=== PATIENT | female | born 1970 | race Caucasian/White ===

== ENCOUNTER 2020-08-07 17:17 | Observation (INO) | payer OTHER, SELFPAY ==
[2020-08-07 17:05] VITALS: BMI 33.0; BMI 33.1
[2020-08-07 17:16] VITALS: BP 122/70; PULSE 78; RESP 18; TEMP 36.8; O2SAT 98
[2020-08-07] MEDS: 0.9% Saline Lock 10 ML Syringe IV ×2 (17:38→17:42)
[2020-08-07] MEDS: 0.9% Normal Saline 1,000 ML 50 ML IV (17:38)
[2020-08-07] MEDS: Morphine 2 MG/ML Syringe IV (17:42)
[2020-08-07] MEDS: Ondansetron 4 MG/2 ML Vial IV (17:42)
--- NOTE | 2020-08-07 17:50 | RAD_ITS ---
INDICATION: kidney stone EXAMINATION/TECHNIQUE: X-RAY - XR Abdomen 1 View COMPARISON: None FINDINGS: BOWEL GAS PATTERN: Non-obstructive. No bowel or stomach distention. FREE AIR: Not assessed on a single supine view. ORGANOMEGALY: Not seen. CALCIFICATIONS: Innumerable clustered tiny stones project over the right hemiabdomen. It is difficult to determine if these are within the kidney or bowel. 6 mm stone projects over the left kidney. LOWER CHEST: No acute pathology. BONES AND SOFT TISSUES: No acute pathology. RAD/Abdomen Single View IMPRESSION: Innumerable clustered tiny stones project over the right hemiabdomen. It is difficult to determine if these are within the kidney or bowel. 6 mm stone projects over the left kidney. Electronically Signed: Robert Muniz MD at 18:19 EDT Tel , Service support ,
--- NOTE | 2020-08-07 18:21 | PCM.HP.STD ---
Problem List (1) Left ureteral calculus Status: Acute History of Present Illness Date of Admission: 08/07/20 Chief Complaint: Left obstructing ureteral calculi The patient is a 50 year old female who presented to the hospital obstructing stone in the mid left ureter she was admitted for pain control plan to proceed with cystoscopy left stent placement and left shockwave lithotripsy. Past Medical History Allergies amoxicillin Adverse Reaction (Verified 08/07/20 17:33) Hives BEE STING Adverse Reaction (Intermediate, Uncoded 08/07/20 17:33) Itching SWOLLEN & ITCHING PENICILLIN Adverse Reaction (Intermediate, Uncoded 08/07/20 17:35) Hives Surgical History: no surgical history Smoking Status: Never smoker Review of Systems Constitutional: Denies: Chills, Fever, Weight Change HEENT: Denies: Head Aches, Sinus Congestion, Sinus Drainage Cardiovascular: Denies: Chest Pain, Palpitations Respiratory: Denies: Cough, Shortness of breath at rest, Sputum production Gastrointestinal: Denies: Abdominal Pain, Nausea, Vomiting Genitourinary: Denies: Dysuria Musculoskeletal: Denies: Joint Pain, Joint Tenderness Skin: Denies: Rash, Wounds Neurological: Denies: Numbness, Tingling, Focal weakness Psychiatric: Denies: Anxiety, Depression, Homicidal Ideations, Suicidal Ideations Hematologic/ Lymphatic: Denies: Easy Bruising, Easy Bleeding VTE Information - Inpt Only VTE Present on Admission: No - Physical Exam Vitals/I&O's: Vital Signs Temp Pulse Resp BP Pulse Ox 98.2 F 78 18 122/70 H 98 08/07/20 17:16 08/07/20 17:16 08/07/20 17:16 08/07/20 17:16 08/07/20 17:16 Oxygen Delivery Method Room Air Weight: 84.7 kg Body Mass Index (BMI) 33.0 General: Alert, Oriented x3, Cooperative HEENT: Atraumatic, PERRLA, EOMI, Normocephalic Neck: Supple, No JVD, Negative Carotid Bruits Lungs: Clear to auscultation, Normal air movement Cardiovascular: Regular rate, No murmurs Abdomen: Bowel Sounds Present, Soft, Non Tender Extremities: No edema, Capillary Refill Less than 3 Seconds Skin: No rashes, No breakdown Musculoskeletal: No Tenderness to Palpation of Joints or Extremities Neurological: Cranial nerves II-XII grossly intact Psych/Mental Status: Normal Affect, Appropriate Current Medications Sodium Chloride () 1,000 mls @ 50 mls/hr IV .Q20H GLORIA Last Admin: 08/07/20 17:38 Dose: 50 mls/hr Documented by: Morphine Sulfate (Morphine 2 Mg/Ml Syringe) 2 mg IV Q2H PRN PRN PRN Reason: Pain Score 1-10 Last Admin: 08/07/20 17:42 Dose: 2 mg Documented by: Ondansetron HCl (Ondansetron 4 Mg/2 Ml Vial) 4 mg IV Q6H PRN PRN PRN Reason: NAUSEA/VOMITING Last Admin: 08/07/20 17:42 Dose: 4 mg Documented by: Sodium Chloride (0.9% Saline Lock 10 Ml Syringe) 10 - 40 ml IV UD PRN PRN Reason: SALINE FLUSH Last Admin: 08/07/20 17:42 Dose: 10 ml Documented by: Assessment/Plan All Active Problems Left ureteral calculus (Acute) 50-year-old female presented with obstructing stone in the mid left ureter on review of her outside CAT scan she also has a significant amount of stones in the right kidney with a significant collection of stones. With a large right staghorn calculus the plan will be to place a stent on the right side a stent on the left side and do shockwave lithotripsy of the left ureteral calculi we will have to address the stones in the right kidney with a percutaneous approach at a later setting.
[2020-08-07 20:15] VITALS: PULSE 80
[2020-08-07] MEDS: Acetaminophen 325 MG Tablet PO (20:20)
[2020-08-07] MEDS: Cefazolin 1 GM/50 ML BAG IV (21:31)
[2020-08-07 21:37] VITALS: BP 107/57; PULSE 80; RESP 20; TEMP 36.9; O2SAT 98
[2020-08-08] VITALS (9 sets, daily range): BP systolic 95–143; BP diastolic 63–85; PULSE 79–112; RESP 16–18; TEMP 36.3–37; O2SAT 93–100
[2020-08-08] MEDS: Acetaminophen 325 MG Tablet PO ×2 (01:55→07:41)
[2020-08-08] MEDS: Ondansetron 4 MG/2 ML Vial IV ×2 (02:05→08:03)
[2020-08-08] MEDS: 0.9% Saline Lock 10 ML Syringe IV ×2 (02:05→08:03)
[2020-08-08] MEDS: Cefazolin 1 GM/50 ML BAG IV ×2 (05:07→12:17)
[2020-08-08] MEDS: Morphine 2 MG/ML Syringe IV (05:07)
--- NOTE | 2020-08-08 06:33 | NURSING ---
Surgery called asking about this pt. I advised that this pt has not had a rapid COVID as far as I can tell. They will advise Dr. Love of the same.
[2020-08-08 06:40] LABS: Hemoglobin 10.6 g/dL (12.0-15.0); Mean Corp Hgb Conc 32.1 g/dL (32-36); Mean Corpuscular Volume 93.5 fL (81-99); Mean Platelet Vol. 10.7 fl (6.2-12.0); Platelet Count 172 K/mm3 (150-450); RBC Distribution Width CV 13.2 % (11.6-14.6); RBC Distribution Width SD 44.6 fl (35.1-43.9); Red Blood Count 3.53 M/mm3 (4.2-5.4); White Blood Count 6.7 K/mm3 (4.4-11.0)
[2020-08-08 07:00] LABS: Anion Gap 6 (5-15); BUN 12 mg/dL (7-18); BUN/Creat Ratio 14.3 RATIO (10-20); Calcium,Total 8.4 mg/dL (8.5-10.1); Chloride 106 mmol/L (98-107); Creatinine, Serum 0.84 mg/dL (0.55-1.02); EST Glomerular Filtration Rate 76 mL/min (>60); Est Glom Filt Rate - Afr Amer 92 mL/min (>60); Estimated Creatinine Clearance 66.28 ml/min; Glucose 101 mg/dL (74-106); Potassium 3.4 mmol/L (3.5-5.1); Sodium Level 136 mmol/L (136-145)
--- NOTE | 2020-08-08 10:58 | NURSING ---
PT TO OR VIA BED
--- NOTE | 2020-08-08 11:38 | DCINST_ITS ---
Discharge Diet: Light diet - advance as tolerated Discharge Activity: Return to Normal Activity Allergies/Adverse Reactions: Allergies amoxicillin Adverse Reaction (Verified 08/07/20 17:33) Hives BEE STING Adverse Reaction (Intermediate, Uncoded 08/07/20 17:33) Itching SWOLLEN & ITCHING PENICILLIN Adverse Reaction (Intermediate, Uncoded 08/07/20 17:35) Hives Medications to take at Discharge Fluoxetine [Prozac] 20 mg PO DAILY 08/07/20 Primary Care Physician: Karen Major CONTROL SYSTEMS ENGINEER, CONTROL SYSTEMS ENGINEER-C [Primary Care Provider] - Test Results: Test results from this visit will be discussed in further detail at your follow- up appointment, if applicable. Please Follow Up With: Wade Love MD - [phone] When: in 2 weeks, please call to make an appointment.
[2020-08-08] MEDS: Lactated Ringers 1,000 ML 100 ML IV (12:31)
--- NOTE | 2020-08-08 12:54 | OP.PCM_ITS ---
Problem List (1) Left ureteral calculus Status: Acute Report of Operation Date of Procedure: 08/08/20 Pre-Operative Diagnosis: Left ureteral calculus and right multiple large renal calculus Post-Operative Diagnosis: Same Surgery/Procedure Performed:: Cystoscopy right retrograde pyelogram right stent placement. Cystoscopy, left retrograde pyelogram, left ureteroscopy laser lithotripsy of stone balloon dilation of left ureter and left stent placement Description of Surgical Findings:: Patient was taken back to the operating room after induction of general anesthesia, the patient was placed in dorsolithotomy position. The urethra and genitals were prepped and draped in usual sterile fashion. Using a 21 Tristanian rigid cystourethroscope the entire length of the urethra was normal then went into the bladder. Identified the trigone the left and right ureteral orifice. I then cannulated the right orifice and advanced a wire up into the kidney. I then backloaded a 5 Tristanian open ended catheter over the wire and injected contrast to delineate the anatomy. Demonstrated a large collection of stone in the right renal pelvis. After the retrograde was performed I then used fluorosc opic images and guidance to advanced a wire up into the kidney and over the 0.038 glidewire I advanced a 6 Tristanian by 26 cm double pigtail stent. I then pulled the 0.038 Glidewire off and the stent coiled in the kidney bladder good position. The bladder was then drained. We confirmed the position of the stent by fluoroscopy. Then I went into the bladder with a 21 Tristanian rigid cystourethroscope through the urethra. Upon entering the bladder I inspected the trigone the left and right ureteral orifice and the bladder itself. I then cannulated the Left ureteral orifice and advanced a 0.038 Glidewire up into the kidney. Then over the Glidewire I advanced a 5 Fr Ureteral catheter and performed a retrograde pyelogram with about 10cc of contrast, to delineate the anatomy and identify the stone location. Then a ureteral balloon dilator was advanced over the wire and the distal ureter was balloon dilated with a 12 Fr x 5cm balloon dilator. After 3 minutes of dilating the ureter the balloon was backloaded off the 0.038 glidewire then the safety wire was left in place. I then placed a second 0.038 Guidewire as a working wire and over the working 0.038 guidewire I went in with a Flexible 7.9fr ureteroscope. I was able to go inside with the 7.9Fr flexible utereroscope and I pulled out the working guidewire and then through the 7.9 fr flexible ureteroscope I ascended up the ureter with direct visualization until the stone was located, then I engaged the stone with laser lithotripsy using a 270miron laser fiber with energy setting of 6 Hertz and 0.6 J until the stone was lasered into tiny little pieces that should pass on their own. After successful noemi lithotripsy of the stone and stone fragements, a retrograde pyelogram was performed with 10cc of contrast and no extravasation of contrast or perforation was identified in the ureter. I then backed out of the ureter left the wire in place and then over the 0.038 guidewire I placed a double coiled pigtail ureteral stent. The ureteral stent was advanced over the 0.038 guidewire under direct fluoroscopic guidance and direct cystoscopic visual guidance, once the stent was in good position I pulled the wire and the stent coiled in the kidney and bladder in good position. I then drained the patient's bladder and the cystoscope was removed and the patient was taken back to the recovery room in good position. The patient was given discharge instructions to call the office for instructions on when to come to the office for follow up, she will need a Percutaneous approach to remove the stone in the right kidney. Type of Anesthesia:: General - Admit VTE Documentation VTE Present on Admission: No VTE Mechan Device Prophylaxis: SCD's
[2020-08-08] MEDS: 0.9% Normal Saline 1,000 ML 50 ML IV (14:22)
== END 2020-08-08 17:50 | disposition home or self-care (01) ==
PROVIDERS: Admitting Provider Urology; PCP Nurse Practitioner Family; Visit Provider Urology
PROC: 0TJ98ZZ Inspection of Ureter, Via Natural or Artificial Opening Endoscopic (ICD-10-PCS; CPT 52352; principal; 2020-08-08 15:35)
DX: N20.2 Calculus of kidney with calculus of ureter (principal); F41.9 Anxiety disorder, unspecified; F32.9 Major depressive disorder, single episode, unspecified; Z79.899 Other long term (current) drug therapy; I49.9 Cardiac arrhythmia, unspecified
CPT/HCPCS: 00918; 52332; 52356; 36415; 74018; 76000; 80048; 85027; 87426; 96365; 96366; 96375; 96376; 99218; 99251; J7030; J7120; A4216; C1769; C2617; G0378; G0379; G0463; J2405

== ENCOUNTER 2020-08-22 07:26 | Observation (INO) | payer OTHER, SELFPAY ==
[2020-08-07 17:05] VITALS: BMI 33.0
[2020-08-22] VITALS (12 sets, daily range): BP systolic 95–127; BP diastolic 52–86; PULSE 60–92; RESP 16–18; TEMP 36.3–36.9; O2SAT 96–100; BMI 32.2
--- NOTE | 2020-08-22 05:57 | RAD_ITS ---
STUDY: X-RAY - ABDOMEN/PELVIS REASON FOR EXAM: Female, 50 years old. Preop kidney stone TECHNIQUE: Single AP view of the abdomen / pelvis. COMPARISON: August 08, 2019 FINDINGS: There is a focus of radiopaque densities in the right upper quadrant. There are bilateral double-J stents. There is postoperative change status post cholecystectomy. Normal soft tissue structures. There are diffuse degenerative changes of the visualized lumbar spine. This postoperative change. RAD/Abdomen Single View IMPRESSION: There is a postoperative change underlying the right second proximal double-J stent. Bilateral double-J stents. There are cluster of stones in the projected over within the right kidney. Electronically Signed: Digna Herman MD at 7:03 EDT Tel , Service support ,
[2020-08-22] MEDS: Lactated Ringers 1,000 ML 100 ML IV ×3 (06:56→23:30)
--- NOTE | 2020-08-22 07:24 | PCM.HP.STD ---
Problem List (1) Left ureteral calculus Status: Acute (2) Right kidney stone Status: Acute History of Present Illness Date of Admission: 08/22/20 Chief Complaint: Status post right stent placement, for staghorn calculus, status post left stent placement after ureteroscopy and laser of stone. The patient is a 50 year old female who presented to the hospital with an obstructing stone in the mid ureter she underwent ureteroscopy and laser lithotripsy of stone and stent placement also she was found to have very large collection of stones in the right renal pelvis consistent with a staghorn calculus and today working to proceed with a percutaneous removal of the stones and removal of the left stent. Past Medical History Allergies Penicillins Allergy (Intermediate, Verified 08/21/20 07:13) Hives amoxicillin Allergy (Verified 08/21/20 07:09) Hives doxycycline Allergy (Verified 08/22/20 06:35) Itching phenazopyridine [From Pyridium] Allergy (Verified 08/22/20 06:34) Other BEE STING Allergy (Intermediate, Uncoded 08/21/20 07:09) Itching SWOLLEN & ITCHING PENICILLIN Allergy (Intermediate, Uncoded 08/21/20 07:09) Hives Home Medications: Ambulatory Orders Medication Instructions Recorded Fluoxetine [Prozac] 20 mg PO DAILY 08/07/20 Ciprofloxacin [Cipro] 500 mg PO BID #10 tab 08/08/20 Fluconazole [Diflucan] 150 mg PO DAILY 08/16/20 Surgical History: no surgical history Psychiatric History: No 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 Lives: Spouse/ Significant Other Smoking Status: Never smoker Tobacco Use: Non-smoker Alcohol: None Drugs: None Review of Systems Constitutional: Denies: Chills, Fever, Weight Change HEENT: Denies: Head Aches, Sinus Congestion, Sinus Drainage Cardiovascular: Denies: Chest Pain, Palpitations Respiratory: Denies: Cough, Shortness of breath at rest, Sputum production Gastrointestinal: Denies: Abdominal Pain, Nausea, Vomiting Genitourinary: Denies: Dysuria Musculoskeletal: Denies: Joint Pain, Joint Tenderness Skin: Denies: Rash, Wounds Neurological: Denies: Numbness, Tingling, Focal weakness Psychiatric: Denies: Anxiety, Depression, Homicidal Ideations, Suicidal Ideations Hematologic/ Lymphatic: Denies: Easy Bruising, Easy Bleeding VTE Information - Inpt Only VTE Present on Admission: No - Physical Exam Vitals/I&O's: Vital Signs Temp Pulse Resp BP Pulse Ox 97.5 F L 92 16 127/75 H 98 08/22/20 06:39 08/22/20 06:39 08/22/20 06:39 08/22/20 06:39 08/22/20 06:39 Oxygen Delivery Method Room Air Weight: 82.6 kg Body Mass Index (BMI) 32.2 General: Alert, Oriented x3, Cooperative HEENT: Atraumatic, PERRLA, EOMI, Normocephalic Neck: Supple, No JVD, Negative Carotid Bruits Lungs: Clear to auscultation, Normal air movement Cardiovascular: Regular rate, No murmurs Abdomen: Bowel Sounds Present, Soft, Non Tender Extremities: No edema, Capillary Refill Less than 3 Seconds Skin: No rashes, No breakdown Musculoskeletal: No Tenderness to Palpation of Joints or Extremities Neurological: Cranial nerves II-XII grossly intact Psych/Mental Status: Normal Affect, Appropriate Microbiology Past 72 Hours 08/21/20 09:40 Interface Orders SARS-CoV-2 Antigen (Rapid) - Final Current Medications Cefazolin Sodium 2 gm/ Sodium (Chloride) 110 mls @ 150 mls/hr IV PREOP ONE Stop: 08/22/20 08:13 Lactated Ringer's () 1,000 mls @ 100 mls/hr IV .Q10H GLORIA Last Admin: 08/22/20 06:56 Dose: 100 mls/hr Documented by: Assessment/Plan All Active Problems Left ureteral calculus (Acute) Right kidney stone (Acute) Plan to proceed with cystoscopy and left stent removal, and then plan to proceed with right percutaneous removal of staghorn calculus and multiple large stones in the right renal pelvis.
[2020-08-22] MEDS: Cefazolin 2 GM in 0.9% Normal Saline 100 ML IV (07:28)
--- NOTE | 2020-08-22 07:30 | CALC_PTH ---
PATIENT: WALTER BERNARD LOC: [facility] U#:[id number] AGE/SX: 50/F ROOM: AR317 RE08/22/[address]: Dr. Wade Love MD : 1970 BED: 1 DIS: 08/24/2020 SPEC #: [id number] RECD: 08/22/20 10:08 STATUS: MAIK PARISHAmauri #: [id number] ELIAN: 08/22/20 07:[address]: Wade Love DEPT: SURGICAL PATHOLOGY RECD BY: Jewell Marley ENTERED: 08/22/20 11:07 SP TYPE: Calculi OTHR DR: Karen Major, BIT SHARPENER OPERATOR-C Tissues: CALCULI Procedures: Surgery Specimen Level I HEADER OPERATION: Right percutaneous nephrostomy, cystoscopy, left stent PRE-OP DIAGNOSIS: Left ureteral calculus; right kidney stone TISSUE SUBMITTED: Right renal calculi for analysis GROSS DIAGNOSIS Right renal calculi, removal: Unremarkable calculi (gross diagnosis only). AM:rachele 08/23/20 COMMENT The calculus is submitted in its entirety for chemical stone analysis. The results from this study will be reported separately. GROSS DESCRIPTION Received without fixative labeled with the patient's name and designated renal calculi for analysis. The specimen consists of multiple irregular fragments of calderon calculi measuring in aggregate 3.5 x 1.2 x 1.2 cm. The calculi are submitted in their entirety for chemical stone analysis. / AM:rachele 08/22/20 CPT: 07347
[2020-08-22] MEDS: Bupivacaine Mpf 0.5% 30 ML VIAL (09:04)
--- NOTE | 2020-08-22 09:09 | OP.PCM_ITS ---
Problem List (1) Left ureteral calculus Status: Acute (2) Right kidney stone Status: Acute Report of Operation Date of Procedure: 08/22/20 Pre-Operative Diagnosis: Right large multiple stones in the renal pelvis and the right kidney Post-Operative Diagnosis: The same Surgery/Procedure Performed:: Cystoscopy and left stent removal,. Cystoscopy and establishment of a left access sheath in the ureter. Percutaneous establishment of a right nephrostomy track. Percutaneous removal of multiple stones total size greater than 5 cm over 50 stones removed Description of Surgical Findings:: 50-year-old female presented to the hospital with obstructing stone in the left ureter she underwent left ureteroscopy laser lithotripsy and stent placement the left side at the same time she had very large stones in the right kidney multiple innumerable amount of stones in the right kidney because of the number of sizes on the recommended a percutaneous removal of the stones. Patient was taken back to the operating room after smooth induction of general anesthesia she was placed in dorsolithotomy position. Went into the bladder with a 21 Salvadorean rigid cystourethroscope, the urethra and vaginal area been prepped and draped in usual sterile fashion, I grabbed the existing stent from the left side and this was removed I then went to the right side grabbed that stent pulled out the meatus advance a wire through the stent and then over the wire I advanced an access sheath all the way up to the kidney under direct visualization. The patient was then repositioned on the table facedown arms out and secured to the table all her pressure points were padded. We prepped and draped the right flank for an approach to the right kidney for percutaneous approach and removal of stones percutaneously. I used fluoroscopy to identify the access point I wanted to make into the kidney in the lower pole to optimize removal of all the stones. I then under fluoroscopic guidance advanced a wire into the kidney until I got into the lower pole puncture. Then through this wire advanced a Glidewire that coiled in the kidney we went up with the flexible ureteroscope to confirm that the wire was in the kidney. I then dilated the tract with 6.9 Salvadorean dilator and then 8 Salvadorean dilator and then 10 Salvadorean dilator I then went in with a dual-lumen access sheath and placed a second wire as a safety wire and then the first wire went down the ureter as a safety wire. Left the ureteroscope in the channel to prevent any migration of stones down the ureter and then once the Super Stiff wire was in place I then balloon dilated the tract and created a nephrostomy track to the lower pole the kidney. I then went in with the nephroscope and immediately encountered a innumerable amount of small very hard stones that were resistant to ultrasonic treatment I used a basket and a grasper and essentially took the next hour to grasp and move the stones out manually and extracted over 50 small stones from her right kidney. Once we had all the stones is that we could in the renal pelvis then I used a flexible ureteroscope and flexible cystoscope to go up the kidney and I flushed stones down from the upper pole the kidney that would not reachable by direct ureteroscopic access getting the stones down the pelvis and I grabbed the remaining stones out of the renal pelvis and then she had several small stones in the lower pole diverticulum very difficult access at the use a flexible cystoscope to get into the ear and then going in there I used a engage basket and was able to basket out the last remaining fragments from the lower pole of the kidney. At the point under fluoroscopy I can see any more stones and under direct visualization could not see any more stones in the kidney render the patient completely clear of all stones the access sheath was removed the ureteroscope was removed I then placed a nephrostomy tube which is an 18 Salvadorean catheter into the renal pelvis with 3 cc in the balloon the access sheath was removed nephrostogram was performed and confirmation of the tube in the kidney. Pressure was held and then I secured the nephrostomy tube to the patient's back with stitches and the dressings were placed and patient was then extubated transferred back to the table taken back to the PACU in good condition with successful removal of all the stone fragments. There was minimal bleeding during the case by about 100 cc. Type of Anesthesia:: General Drains: RIGHT NEPHROSTOMY TUBE - Admit VTE Documentation VTE Present on Admission: No
[2020-08-22] MEDS: Lactated Ringers 1,000 ML 1000 ML IV (10:20)
[2020-08-22] MEDS: Ketorolac 15 MG/ML Vial IV (10:21)
[2020-08-22] MEDS: HYDROcodone Bitartrate/Apap 5/325 Tablet PO (13:38)
[2020-08-22] MEDS: FLUoxetine 20 MG Capsule PO (13:38)
[2020-08-22] MEDS: Cefazolin 1 GM/50 ML BAG IV ×2 (15:18→23:30)
[2020-08-22] MEDS: Ondansetron 4 MG/2 ML Vial IV (18:30)
[2020-08-23] MEDS: HYDROcodone Bitartrate/Apap 5/325 Tablet PO (01:03)
[2020-08-23 03:46] VITALS: BP 99/52; PULSE 73; RESP 16; TEMP 37.1; O2SAT 95
[2020-08-23] MEDS: Acetaminophen 325 MG Tablet PO (06:02)
[2020-08-23 07:07] LABS: Hematocrit 29.7 % (37-47); Hemoglobin 9.3 g/dL (12.0-15.0); Mean Corp Hgb Conc 31.3 g/dL (32-36); Mean Corpuscular Hgb 29.5 pg (27.0-32.0); Mean Corpuscular Volume 94.3 fL (81-99); Mean Platelet Vol. 9.9 fl (6.2-12.0); Platelet Count 222 K/mm3 (150-450); RBC Distribution Width CV 13.1 % (11.6-14.6); RBC Distribution Width SD 44.9 fl (35.1-43.9); Red Blood Count 3.15 M/mm3 (4.2-5.4); White Blood Count 12.2 K/mm3 (4.4-11.0)
--- NOTE | 2020-08-23 07:33 | PN_ITS ---
Patient Problems: Active and Suspected Problems Left ureteral calculus (Acute) Right kidney stone (Acute) Subjective: S/P RIGHT PERC DOING WELL URINE CLEAR - Physical Exam Vitals/I&O's: Vital Signs Temp Pulse Resp BP Pulse Ox 98.7 F 73 16 99/52 L 95 08/23/20 03:46 08/23/20 03:46 08/23/20 03:46 08/23/20 03:46 08/23/20 03:46 Oxygen Flow Rate (L/min) 12 Oxygen Delivery Method Room Air Weight: 82.6 kg Body Mass Index (BMI) 32.2 Intake and Output for Last 24 Hours 08/21/20 08/22/20 08/23/20 23:59 23:59 23:59 Intake Total 3615.00 / 3615.00 681.67 / 681.67 Output Total 430 / 680 450 / 450 Balance 3185.00 / 2935.00 231.67 / 231.67 General: Alert, Oriented x3, Cooperative HEENT: Atraumatic, PERRLA, EOMI, Normocephalic Neck: Supple, No JVD, Negative Carotid Bruits Lungs: Clear to auscultation, Normal air movement Cardiovascular: Regular rate, No murmurs Abdomen: Bowel Sounds Present, Soft, Non Tender Extremities: No edema, Capillary Refill Less than 3 Seconds Skin: No rashes, No breakdown Musculoskeletal: No Tenderness to Palpation of Joints or Extremities Neurological: Cranial nerves II-XII grossly intact Psych/Mental Status: Normal Affect, Appropriate Microbiology Past 72 Hours 08/21/20 09:40 Interface Orders SARS-CoV-2 Antigen (Rapid) - Final Laboratory Results 08/22/20 : Stone Source Pending, Stone Size Pending, Stone Weight Pending, Stone Color Pending 08/23/20 06:40: WBC 12.2 H, RBC 3.15 L, Hgb 9.3 L, Hct 29.7 L, MCV 94.3, MCH 29.5, MCHC 31.3 L, RDW Std Deviation 44.9 H, RDW Coeff of Mavis 13.1, Plt Count 222, MPV 9.9 08/23/20 06:40: Sodium Pending, Potassium Pending, Chloride Pending, Carbon Dioxide Pending, Anion Gap Pending, BUN Pending, Creatinine Pending, Est GFR (MDRD) Af Amer Pending, Est GFR (MDRD) Non-Af Pending, BUN/Creatinine Ratio Pending, Glucose Pending, Calcium Pending Current Medications Acetaminophen (Acetaminophen 325 Mg Tablet) 325 - 650 mg PO Q4H PRN PRN PRN Reason: pain score 1-10/fever/headache Last Admin: 08/23/20 06:02 Dose: 650 mg Documented by: Hydrocodone Bitart/Acetaminophen (Hydrocodone Bitartrate/Apap 5/325 Tablet) 1 - 2 tablet PO Q6H PRN PRN PRN Reason: Pain Score 1-5 Last Admin: 08/23/20 01:03 Dose: 1 tablet Documented by: Belladonna Alkaloids/Opium (Opium/Belladonna Alkaloids 60 Mg/15 Mg Suppository) 60 mg RC Q6H PRN PRN PRN Reason: Spasm Last Admin: 08/22/20 10:22 Dose: 60 mg Documented by: Fluoxetine HCl (Fluoxetine 20 Mg Capsule) 20 mg PO DAILY [facility] Last Admin: 08/22/20 13:38 Dose: 20 mg Documented by: Lactated Ringer's () 1,000 mls @ 100 mls/hr IV .Q10H [facility] Last Infusion: 08/22/20 11:20 Dose: Infused Documented by: Lactated Ringer's () 1,000 mls @ 100 mls/hr IV .Q10H [facility] Last Infusion: 08/23/20 06:39 Dose: 0 mls/hr Documented by: Ketorolac Tromethamine (Ketorolac 15 Mg/Ml Vial) 15 mg IV Q6H PRN PRN PRN Reason: PAIN Stop: 08/24/20 07:27 Last Admin: 08/22/20 10:21 Dose: 15 mg Documented by: Morphine Sulfate (Morphine 2 Mg/Ml Syringe) 2 mg IV Q2H PRN PRN PRN Reason: Pain Score 6-10 Ondansetron HCl (Ondansetron 4 Mg/2 Ml Vial) 4 mg IV Q6H PRN PRN PRN Reason: NAUSEA Last Admin: 08/22/20 18:30 Dose: 4 mg Documented by: Prochlorperazine Edisylate (Prochlorperazine 10 Mg/2 Ml Vial) 10 mg IV Q6H PRN PRN PRN Reason: breakthrough nausea Sodium Chloride (0.9% Saline Lock 10 Ml Syringe) 10 - 40 ml IV UD PRN PRN Reason: SALINE FLUSH Tolterodine Tartrate (Tolterodine Tartrate 4 Mg Cap.Sa) 4 mg PO DAILY PRN PRN PRN Reason: Spasms Medical Necessity - Tobacco Use Smoking Status: Never smoker Tobacco Use: Non-smoker Assessment/Plan All Active Problems Left ureteral calculus (Acute) Right kidney stone (Acute) RIGHT NEPHROSTOMY TUBE CLAMPED TOMORROW WILL REMOVE TUBE AND HOME TOMORROW.
[2020-08-23 07:37] LABS: Anion Gap 4 (5-15); BUN 10 mg/dL (7-18); BUN/Creat Ratio 15.5 RATIO (10-20); Calcium,Total 8.2 mg/dL (8.5-10.1); Chloride 105 mmol/L (98-107); Creatinine, Serum 0.65 mg/dL (0.55-1.02); EST Glomerular Filtration Rate 103 mL/min (>60); Est Glom Filt Rate - Afr Amer 125 mL/min (>60); Estimated Creatinine Clearance 85.65 ml/min; Glucose 103 mg/dL (74-106); Sodium Level 136 mmol/L (136-145)
[2020-08-23 07:50] VITALS: BP 97/54; PULSE 62; RESP 16; TEMP 36.9; O2SAT 98
[2020-08-23] MEDS: Ketorolac 15 MG/ML Vial IV ×2 (07:54→14:43)
[2020-08-23] MEDS: 0.9% Saline Lock 10 ML Syringe IV ×2 (07:55→14:44)
[2020-08-23] MEDS: Ondansetron 4 MG/2 ML Vial IV (07:55)
[2020-08-23] MEDS: FLUoxetine 20 MG Capsule PO (10:34)
[2020-08-23 14:45] VITALS: BP 101/50; PULSE 70; RESP 16; TEMP 36.8; O2SAT 98
[2020-08-23 20:30] VITALS: BP 99/52; PULSE 74; RESP 16; TEMP 37.1; O2SAT 98
[2020-08-24 02:18] VITALS: BP 124/69; PULSE 82; RESP 16; TEMP 37.2; O2SAT 95
[2020-08-24] MEDS: HYDROcodone Bitartrate/Apap 5/325 Tablet PO ×2 (02:18→08:09)
[2020-08-24 08:07] VITALS: BP 98/53; PULSE 83; RESP 16; TEMP 36.8; O2SAT 98
[2020-08-24] MEDS: FLUoxetine 20 MG Capsule PO (08:09)
--- NOTE | 2020-08-24 11:24 | PCM.DC.URO ---
Discharge Diet: Light diet - advance as tolerated Discharge Activity: Return to Normal Activity Allergies/Adverse Reactions: Allergies Penicillins Allergy (Intermediate, Verified 08/21/20 07:13) Hives amoxicillin Allergy (Verified 08/21/20 07:09) Hives doxycycline Allergy (Verified 08/22/20 06:35) Itching phenazopyridine [From Pyridium] Allergy (Verified 08/22/20 06:34) Other BEE STING Allergy (Intermediate, Uncoded 08/21/20 07:09) Itching SWOLLEN & ITCHING PENICILLIN Allergy (Intermediate, Uncoded 08/21/20 07:09) Hives Medications to take at Discharge Fluoxetine [Prozac] 20 mg PO DAILY 08/07/20 Ciprofloxacin [Cipro] 500 mg PO BID #10 tab 08/08/20 Fluconazole [Diflucan] 150 mg PO DAILY 08/16/20 Primary Care Physician: Karen Major LOGISTICS OPERATIONS MANAGER, LOGISTICS OPERATIONS MANAGER-C [Primary Care Provider] - Test Results: Test results from this visit will be discussed in further detail at your follow-up appointment, if applicable. Please Follow Up With: Wade Love MD When: please call to make an appointment.
--- NOTE | 2020-08-24 11:25 | PCM.DC.SUM ---
Discharge Date and Diagnosis - Problem List Patient Problems: Active and Suspected Problems Left ureteral calculus (Acute) Right kidney stone (Acute) Date of Admission: 08/22/20 Date of Discharge: 08/24/20 - Primary Discharge Diagnosis Acute Problems: Active Problems Left ureteral calculus (Acute) Right kidney stone (Acute) Hospital Course and Treatment Operations: - - percutaneous removal of stones Summary of Care Provided: The patient is a 50 year old F [] Patient Problems: Active and Suspected Problems Left ureteral calculus (Acute) Right kidney stone (Acute) - Physical Exam Vitals/I&O's: Vital Signs Temp Pulse Resp BP Pulse Ox 98.3 F 83 16 98/53 L 98 08/24/20 08:07 08/24/20 08:07 08/24/20 08:07 08/24/20 08:07 08/24/20 08:07 Oxygen Flow Rate (L/min) 12 Oxygen Delivery Method Room Air Weight: 82.6 kg Body Mass Index (BMI) 32.2 Intake and Output for Last 24 Hours 08/22/20 08/23/20 08/24/20 23:59 23:59 23:59 Intake Total 3615.00 / 3615.00 1681.67 / 1681.67 Output Total 430 / 680 720 / 970 650 / 650 Balance 3185.00 / 2935.00 961.67 / 711.67 -650 / -650 General: Alert, Oriented x3, Cooperative HEENT: Atraumatic, PERRLA, EOMI, Normocephalic Neck: Supple, No JVD, Negative Carotid Bruits Lungs: Clear to auscultation, Normal air movement Cardiovascular: Regular rate, No murmurs Abdomen: Bowel Sounds Present, Soft, Non Tender Extremities: No edema, Capillary Refill Less than 3 Seconds Skin: No rashes, No breakdown Musculoskeletal: No Tenderness to Palpation of Joints or Extremities Neurological: Cranial nerves II-XII grossly intact Psych/Mental Status: Normal Affect, Appropriate Microbiology Past 72 Hours 08/21/20 09:40 Interface Orders SARS-CoV-2 Antigen (Rapid) - Final Current Medications Acetaminophen (Acetaminophen 325 Mg Tablet) 325 - 650 mg PO Q4H PRN PRN PRN Reason: pain score 1-10/fever/headache Last Admin: 08/23/20 06:02 Dose: 650 mg Documented by: Hydrocodone Bitart/Acetaminophen (Hydrocodone Bitartrate/Apap 5/325 Tablet) 1 - 2 tablet PO Q6H PRN PRN PRN Reason: Pain Score 1-5 Last Admin: 08/24/20 08:09 Dose: 1 tablet Documented by: Fluoxetine HCl (Fluoxetine 20 Mg Capsule) 20 mg PO DAILY GLORIA Last Admin: 08/24/20 08:09 Dose: 20 mg Documented by: Ondansetron HCl (Ondansetron 4 Mg/2 Ml Vial) 4 mg IV Q6H PRN PRN PRN Reason: NAUSEA Last Admin: 08/23/20 07:55 Dose: 4 mg Documented by: Prochlorperazine Edisylate (Prochlorperazine 10 Mg/2 Ml Vial) 10 mg IV Q6H PRN PRN PRN Reason: breakthrough nausea Sodium Chloride (0.9% Saline Lock 10 Ml Syringe) 10 - 40 ml IV UD PRN PRN Reason: SALINE FLUSH Last Admin: 08/23/20 14:44 Dose: 10 ml Documented by: Discharge Diet: Light diet - advance as tolerated Discharge Activity: Return to Normal Activity Home Medications: Medications to take at Discharge Fluoxetine [Prozac] 20 mg PO DAILY 08/07/20 Ciprofloxacin [Cipro] 500 mg PO BID #10 tab 08/08/20 Fluconazole [Diflucan] 150 mg PO DAILY 08/16/20 Primary Care Physician: Karen Major SOLDERING INSPECTOR, SOLDERING INSPECTOR-C [Primary Care Provider] - Please Follow Up With: Wade Love MD When: please call to make an appointment. Medical Necessity - Tobacco Use Smoking Status: Never smoker Tobacco Use: Non-smoker Meaningful Use Info Meaningful Use Diagnoses (Choose all that apply): None applicable
[2020-08-24 14:04] VITALS: BP 99/58; PULSE 77; RESP 16; TEMP 36.9; O2SAT 97
== END 2020-08-24 16:21 | disposition home or self-care (01) ==
LOC: SDC 09:28 → MS3 16:44
PROVIDERS: Admitting Provider Urology; PCP Nurse Practitioner Family; Referring Provider Urology; Visit Provider Urology
PROC: (CPT 50437; principal; 2020-08-22 07:10)
DX: N20.2 Calculus of kidney with calculus of ureter (principal); F41.9 Anxiety disorder, unspecified; F32.9 Major depressive disorder, single episode, unspecified; Z79.899 Other long term (current) drug therapy
CPT/HCPCS: 00860; 50437; 52315; 74018; 76000; 80048; 82360; 85027; 87426; 88300; 96361; 96365; 96366; 96375; 96376; 99218; 99251; C9803; J7120; A4216; C1758; C1769; G0378; G0379; G0463; J2405

== ENCOUNTER → 2020-09-24 08:31 | Outpatient (CLI) | payer OTHER, SELFPAY ==
[2020-08-22 06:39] VITALS: BMI 32.2
--- NOTE | 2020-09-24 08:35 | RAD_ITS ---
STUDY: X-RAY - ABDOMEN/PELVIS REASON FOR EXAM: Female, 50 years old. CALCULUS OF URETER TECHNIQUE: Single AP view of the abdomen / pelvis. COMPARISON: Comparison is made with prior examination dated 08/22/2020. FINDINGS: Normal visualized lung bases. There is a moderate amount of colonic fecal material. The previously seen bilateral double-J stent catheters have been removed. No renal calcifications are seen at this time. Normal soft tissue structures. Normal visualized osseous structures. RAD/Abdomen Single View IMPRESSION: No renal calcifications are seen at this time. Electronically Signed: Jeevan Gallardo MD at 14:30 EDT , Service support ,
== END ==
PROVIDERS: PCP Nurse Practitioner Family; Referring Provider Urology; Visit Provider Urology
DX: N20.1 Calculus of ureter (principal)
CPT/HCPCS: 74018

== ENCOUNTER → 2021-10-01 | Outpatient (CLI) | payer OTHER, SELFPAY ==
[2021-10-04 20:12] LABS: HPV APTIMA, High Risk Negative (Negative)
== END | disposition home or self-care (01) ==
PROVIDERS: PCP Nurse Practitioner Family; Visit Provider Student in an Organized Health Care Education/Training Program
DX: Z12.4 Encounter for screening for malignant neoplasm of cervix (principal)
CPT/HCPCS: 87624; 88175; G0145